=== PATIENT | male | born 1960 | race Caucasian/White ===

== ENCOUNTER 2020-05-07 09:16 | Inpatient (IN) | payer MEDICARE ==
[2020-05-07 09:27] LABS: ANION GAP 18.6 mEq/L (7-13); CHLORIDE,CL 101 mmol/L (98-107); SODIUM,NA 139 mmol/L (136-145)
[2020-05-07] MEDS ORDERED: 50% Dextrose in Water 50 ML Syringe IVPUSH ONE (10:05)
--- NOTE | 2020-05-07 10:07 | CR ---
PROCEDURE INFORMATION: Exam: XR Chest Exam date and time: 05/07/2020 9:44 AM Age: 59 years old Clinical indication: Chest pain TECHNIQUE: Imaging protocol: XR of the chest Views: 1 view. COMPARISON: No relevant prior studies available. FINDINGS: Limitations: Underpenetration. Lungs: Unremarkable. No consolidation. Pleural spaces: Unremarkable. No pleural effusion. No pneumothorax. Heart/Mediastinum: Unremarkable. No cardiomegaly. Bones/joints: Degenerative changes involve the spine. IMPRESSION: No evidence for acute pulmonary disease.
--- NOTE | 2020-05-07 10:19 | EDM.PDOC ---
ED HPI GENERAL MEDICAL PROBLEM - General Chief Complaint: General Time Seen by Provider: 05/07/20 09:16 Source of Information: Reports: Patient, EMS, EMS Notes Reviewed, RN, RN Notes Reviewed History Limitations: Reports: No Limitations - History of Present Illness INITIAL COMMENTS - FREE TEXT/NARRATIVE: Patient is a 59-year-old male who presents to ER per [facility] with complaint of increased weakness and inability to walk for the past 5 to 6 weeks, progressively getting worse. Patient denies any fever chills, nausea, vomiting. States he has had some diarrhea as well as incontinence of bowel and bladder. Patient states he is a diabetic, does not take medications for his diabetes. States a history of hypertension. Patient also states a history of chronic back pain, with shooting pains down his legs. He states this has not changed recently, denies any saddle anesthesia. Patient states he does take gabapentin for this. Onset: Gradual Leg Pain Score (Numeric/FACES): 4 - Related Data Allergies Allergy/AdvReac Type Severity Reaction Status Date / Time No Known Allergies Allergy Verified 05/07/20 11:26 Home Meds: Home Meds Gabapentin 600 mg PO TID 03/10/14 [History] HCTZ/Triamterene [Maxzide 25-37.5 MG] 1 tab PO DAILY 03/10/14 [History] Lisinopril 40 mg PO DAILY 03/10/14 [History] tiZANidine HCl [Tizanidine HCl] 8 mg PO Q8H PRN 03/10/14 [History] atorvaSTATin [Lipitor] 20 mg PO DAILY 05/07/20 [History] glyBURIDE [Micronase] 2.5 mg PO DAILY 05/07/20 [History] metFORMIN HCl [Metformin HCl] 1,000 mg PO BIDMEALS 05/07/20 [History] Past Medical History HEENT History: Reports: Impaired Vision Other HEENT History: wears glasses Cardiovascular History: Reports: Hypertension Respiratory History: Reports: Sleep Apnea Gastrointestinal History: Reports: None Genitourinary History: Reports: None Musculoskeletal History: Reports: Back Pain, Chronic Neurological History: Reports: Concussion, Head Trauma Psychiatric History: Reports: Addiction Endocrine/Metabolic History: Reports: Diabetes, Type II, Obesity/BMI 30+ Hematologic History: Reports: None Immunologic History: Reports: None Oncologic (Cancer) History: Reports: None Dermatologic History: Reports: None - Infectious Disease History Infectious Disease History: Reports: Chicken Pox, Measles, Mumps - Past Surgical History Head Surgeries/Procedures: Reports: None HEENT Surgical History: Reports: Tonsillectomy Other GI Surgeries/Procedures: ruptured belly button as a child Social & Family History - Tobacco Use Tobacco Use Status *Q: Current Every Day Tobacco User Years of Tobacco use: 46 Packs/Tins Daily: 1 Second Hand Smoke Exposure: Yes - Caffeine Use Caffeine Use: Reports: Coffee - Recreational Drug Use Recreational Drug Use: No ED ROS GENERAL - Review of Systems Review Of Systems: Comprehensive ROS is negative, except as noted in HPI. ED EXAM, GENERAL - Physical Exam Exam: See Below Exam Limited By: No Limitations General Appearance: Alert, WD/WN (Right shoulder right), No Apparent Distress, Obese Eye Exam: Bilateral Eye: EOMI, Normal Inspection Ears: Normal External Exam, Hearing Grossly Normal Nose: Normal Inspection Throat/Mouth: Normal Inspection, Normal Voice, No Airway Compromise Head: Atraumatic, Normocephalic Neck: Normal Inspection, Supple, Non-Tender, Full Range of Motion Respiratory/Chest: No Respiratory Distress, Lungs Clear, Normal Breath Sounds, No Accessory Muscle Use, Chest Non-Tender, Decreased Breath Sounds Cardiovascular: Normal Peripheral Pulses, Regular Rate, Rhythm, No Edema, No Gallop, No JVD, No Murmur, No Rub Peripheral Pulses: 2+: Radial (L), Radial (R) GI/Abdominal: Normal Bowel Sounds, Soft, Non-Tender (Male) Exam: Deferred Rectal (Males) Exam: Deferred Back Exam: Normal Inspection, Full Range of Motion, NT Extremities: Normal Inspection, Normal Range of Motion, Non-Tender, Normal Capillary Refill, No Pedal Edema Neurological: Alert, Oriented, CN II-XII Intact, Normal Cognition, No Motor/Sensory Deficits Psychiatric: Normal Affect, Normal Mood Skin Exam: Warm, Dry, Intact, Normal Color, No Rash Lymphatic: No Adenopathy Course - Vital Signs Last Recorded V/S: Last Vital Signs Temp 97.3 F 05/07/20 08:42 Pulse 94 05/07/20 08:42 Resp 17 05/07/20 08:42 BP 131/90 05/07/20 08:42 Pulse Ox 96 05/07/20 08:42 - Orders/Labs/Meds Orders: Active Orders 24 hr Category Date Time Status Urinary Catheter Insertion [Insert Urinary Catheter] [ Care 05/07/20 11:00 Ordered OM.PC] Q24H Labs: Laboratory Tests 05/07/20 05/07/20 05/07/20 Range/Units 09:00 09:00 10:43 WBC 6.2 (5.0-10.0) 10^3/uL RBC 4.36 L (4.6-6.2) 10^6/uL Hgb 14.9 D (14.0-18.0) g/dL Hct 43.4 (40.0-54.0) % MCV 99.5 (80-100) fL MCH 34.2 H (27.0-34.0) pg MCHC 34.3 (33.0-35.0) g/dL Plt Count 66 L (150-450) 10^3/uL Neut % (Auto) 70.0 (42.2-75.2) % Lymph % (Auto) 15.9 L (20.5-50.1) % [place] % (Auto) 13.6 H (2-8) % Eos % (Auto) 0.2 L (1.0-3.0) % Baso % (Auto) 0.3 (0.0-1.0) % Add Manual Diff Yes Neutrophils % (Manual) 69 (42-75) % Band Neutrophils % 8 % Lymphocytes % (Manual) 14 L (20-50) % Monocytes % (Manual) 9 H (2-8) % Sodium 139 (136-145) mmol/L Potassium 4.6 (3.5-5.1) mmol/L Chloride 101 (98-107) mmol/L Carbon Dioxide 24 (21-32) mmol/L Anion Gap 18.6 H (7-13) mEq/L BUN 81 H D (7-18) mg/dL Creatinine 2.90 H D (0.70-1.30) mg/dL Est Cr Clr Drug Dosing 25.36 mL/min Estimated GFR (MDRD) 23 BUN/Creatinine Ratio 27.9 (No establ ref range) Glucose 53 L (74-99) mg/dL Calcium 8.5 (8.5-10.1) mg/dL Magnesium 2.1 (1.8-2.4) mg/dL Total Bilirubin 0.8 (0.2-1.0) mg/dL AST 96 H (15-37) U/L ALT 59 (16-63) U/L Alkaline Phosphatase 50 (46-116) U/L Troponin I < 0.017 (0.000-0.056) ng/mL C-Reactive Protein 9.4 H (0.0-0.9) mg/dL Total Protein 7.7 (6.4-8.2) g/dL Albumin 3.1 L (3.4-5.0) g/dL Globulin 4.6 Albumin/Globulin Ratio 0.67 Urine Color (YELLOW) Urine Appearance (CLEAR) Urine pH (5.0-9.0) Ur Specific [place] (1.005-1.030) Urine Protein (NEGATIVE) Urine Glucose (UA) (NEGATIVE) Urine Ketones (NEGATIVE) Urine Occult Blood (NEGATIVE) Urine Nitrite (NEGATIVE) Urine Bilirubin (NEGATIVE) Urine Urobilinogen (0.2-1.0) mg/dL Ur Leukocyte Esterase (NEGATIVE) U Hyaline Cast (Auto) Urine RBC /HPF Urine WBC (0-5/HPF) /HPF Ur Epithelial Cells (NOT SEEN) /HPF Amorphous Sediment (NOT SEEN) /HPF Urine Bacteria (0-FEW/HPF) /HPF Urine Mucus (NOT SEEN) /LPF Urine Other Urine Opiates Screen (NEGATIVE) Ur Oxycodone Screen (NEGATIVE) Urine Methadone Screen (NEGATIVE) Ur Barbiturates Screen (NEGATIVE) U Tricyclic Antidepress (NEGATIVE) Ur Phencyclidine Scrn (NEGATIVE) Ur Amphetamine Screen (NEGATIVE) U Methamphetamines Scrn (NEGATIVE) Urine MDMA Screen (NEGATIVE) U Benzodiazepines Scrn (NEGATIVE) Urine Cocaine Screen (NEGATIVE) U Marijuana (THC) Screen (NEGATIVE) Ketones Negative Influenza Type A RNA Negative (NEGATIVE) Influenza Type B RNA Negative (NEGATIVE) SARS-CoV-2 RNA (DANETTE) Positive H (NEGATIVE) 05/07/20 05/07/20 Range/Units 10:52 10:52 WBC (5.0-10.0) 10^3/uL RBC (4.6-6.2) 10^6/uL Hgb (14.0-18.0) g/dL Hct (40.0-54.0) % MCV (80-100) fL MCH (27.0-34.0) pg MCHC (33.0-35.0) g/dL Plt Count (150-450) 10^3/uL Neut % (Auto) (42.2-75.2) % Lymph % (Auto) (20.5-50.1) % [place] % (Auto) (2-8) % Eos % (Auto) (1.0-3.0) % Baso % (Auto) (0.0-1.0) % Add Manual Diff Neutrophils % (Manual) (42-75) % Band Neutrophils % % Lymphocytes % (Manual) (20-50) % Monocytes % (Manual) (2-8) % Sodium (136-145) mmol/L Potassium (3.5-5.1) mmol/L Chloride (98-107) mmol/L Carbon Dioxide (21-32) mmol/L Anion Gap (7-13) mEq/L BUN (7-18) mg/dL Creatinine (0.70-1.30) mg/dL Est Cr Clr Drug Dosing mL/min Estimated GFR (MDRD) BUN/Creatinine Ratio (No establ ref range) Glucose (74-99) mg/dL Calcium (8.5-10.1) mg/dL Magnesium (1.8-2.4) mg/dL Total Bilirubin (0.2-1.0) mg/dL AST (15-37) U/L ALT (16-63) U/L Alkaline Phosphatase (46-116) U/L Troponin I (0.000-0.056) ng/mL C-Reactive Protein (0.0-0.9) mg/dL Total Protein (6.4-8.2) g/dL Albumin (3.4-5.0) g/dL Globulin Albumin/Globulin Ratio Urine Color Yellow (YELLOW) Urine Appearance Clear (CLEAR) Urine pH 5.5 (5.0-9.0) Ur Specific [place] 1.025 (1.005-1.030) Urine Protein 100 H (NEGATIVE) Urine Glucose (UA) Negative (NEGATIVE) Urine Ketones Negative (NEGATIVE) Urine Occult Blood Moderate H (NEGATIVE) Urine Nitrite Negative (NEGATIVE) Urine Bilirubin Negative (NEGATIVE) Urine Urobilinogen 0.2 (0.2-1.0) mg/dL Ur Leukocyte Esterase Negative (NEGATIVE) U Hyaline Cast (Auto) Few Urine RBC 0-5 /HPF Urine WBC 0-5 (0-5/HPF) /HPF Ur Epithelial Cells Few (NOT SEEN) /HPF Amorphous Sediment Few (NOT SEEN) /HPF Urine Bacteria Not seen (0-FEW/HPF) /HPF Urine Mucus Few H (NOT SEEN) /LPF Urine Other See note Urine Opiates Screen Negative (NEGATIVE) Ur Oxycodone Screen Negative (NEGATIVE) Urine Methadone Screen Negative (NEGATIVE) Ur Barbiturates Screen Negative (NEGATIVE) U Tricyclic Antidepress Negative (NEGATIVE) Ur Phencyclidine Scrn Negative (NEGATIVE) Ur Amphetamine Screen Negative (NEGATIVE) U Methamphetamines Scrn Negative (NEGATIVE) Urine MDMA Screen Negative (NEGATIVE) U Benzodiazepines Scrn Negative (NEGATIVE) Urine Cocaine Screen Negative (NEGATIVE) U Marijuana (THC) Screen Negative (NEGATIVE) Ketones Influenza Type A RNA (NEGATIVE) Influenza Type B RNA (NEGATIVE) SARS-CoV-2 RNA (DANETTE) (NEGATIVE) Meds: Medications Discontinued Medications Generic Name Dose Route Start Last Admin Trade Name Freq PRN Reason Stop Dose Admin Dextrose/Water 50 ml 05/07/20 10:05 05/07/20 10:28 50% Dextrose In Water 50 Ml Syringe IVPUSH 05/07/20 10:06 50 ml ONETIME ONE Administration - Radiology Interpretation Free Text/Narrative:: Chest xray: PROCEDURE INFORMATION: Exam: XR Chest Exam date and time: 05/07/2020 9:44 AM Age: 59 years old Clinical indication: Chest pain TECHNIQUE: Imaging protocol: XR of the chest Views: 1 view. COMPARISON: No relevant prior studies available. FINDINGS: Limitations: Underpenetration. Lungs: Unremarkable. No consolidation. Pleural spaces: Unremarkable. No pleural effusion. No pneumothorax. Heart/Mediastinum: Unremarkable. No cardiomegaly. Bones/joints: Degenerative changes involve the spine. IMPRESSION: No evidence for acute pulmonary disease. Thank you for allowing us to participate in the care of your patient. Dictated and Authenticated by: Aiden Romo MD 05/07/2020 10:07 AM Central Time ([place] & [place]) See rad report - Re-Assessments/Exams Free Text/Narrative Re-Assessment/Exam: 05/07/20 13:27 Discussed patient case with Dr. Wan who agreed to accept the patient for acute admission. Departure - Departure Time of Disposition: 11:08 Disposition: Admitted As Inpatient 68 Condition: Fair Clinical Impression: COVID-19 Acute kidney failure Qualifiers: Acute renal failure type: unspecified Qualified Code(s): N17.9 - Acute kidney failure, unspecified - Discharge Information *PRESCRIPTION DRUG MONITORING PROGRAM REVIEWED*: No Sepsis Event Note (ED) - Evaluation Sepsis Screening Result: No Definite Risk - Focused Exam Vital Signs: Vital Signs Temp Pulse Resp BP Pulse Ox 05/07/20 08:42 97.3 F 94 17 131/90 96 - My Orders Last 24 Hours: My Active Orders 05/07/20 11:00 Urinary Catheter Insertion [Insert Urinary Catheter] [OM.PC] Q24H - Assessment/Plan Last 24 Hours: My Active Orders 05/07/20 11:00 Urinary Catheter Insertion [Insert Urinary Catheter] [OM.PC] Q24H
[2020-05-07 11:34] LABS: CORONAVIRUS COVID-19 NAA POSITIVE (NEGATIVE)
[2020-05-07] MEDS ORDERED: Sodium Chloride 0.9% 1,000 ML IV ONE (14:20)
[2020-05-07] MEDS ORDERED: Acetaminophen 325 MG Tab PO PRN (15:08)
[2020-05-07] MEDS ORDERED: Insulin Lispro 100 Units/ML 3 ML Vial SUBCUT SCH (15:15)
[2020-05-07] MEDS ORDERED: Glucagon,Human Recombinant 1 MG Vial IM PRN (15:26)
[2020-05-07] MEDS ORDERED: Enoxaparin 40 MG/0.4 ML Syringe SUBCUT SCH (15:30)
--- NOTE | 2020-05-07 15:41 | PCM.HP ---
H&P History of Present Illness - General Date of Service: 05/07/20 Admit Problem/Dx: Admission Diagnosis/Problem Admission Diagnosis/Problem Weakness Patient is a 59-year-old male who presents to ER per [facility] with complaint of increased weakness and inability to walk for the past 2 weeks, progressively getting worse. Patient denies any fever chills, nausea, vomiting. States he has had some diarrhea as well as incontinence of bowel and bladder. Patient states he is a diabetic, does not take medications for his diabetes. States a history of hypertension. Patient also states a history of chronic back pain, with shooting pains down his legs. He states this has not changed recently, denies any saddle anesthesia. Patient states he does take gabapentin for this. He repots that he has been in self isolation for the past 10 days due to COVID exposure. He also complains of urinary incontinence and occasional stool incontinence. Source of Information: Patient, RN Notes Reviewed History Limitations: Reports: No Limitations - History of Present Illness Onset of Symptoms: Reports: Gradual Duration of Symptoms: Reports: Getting Worse Location: Reports: Generalized Quality: Reports: Ache Improves with: Reports: None Worsens with: Reports: None Associated Symptoms: Reports: No Other Symptoms Leg Pain Score (Numeric/FACES): 4 - Related Data Allergies/Adverse Reactions: Allergies Allergy/AdvReac Type Severity Reaction Status Date / Time No Known Allergies Allergy Verified 05/07/20 11:26 Home Medications: Home Meds Gabapentin 600 mg PO TID 03/10/14 [History] HCTZ/Triamterene [Maxzide 25-37.5 MG] 1 tab PO DAILY 03/10/14 [History] Lisinopril 40 mg PO DAILY 03/10/14 [History] tiZANidine HCl [Tizanidine HCl] 8 mg PO Q8H PRN 03/10/14 [History] atorvaSTATin [Lipitor] 20 mg PO DAILY 05/07/20 [History] glyBURIDE [Micronase] 2.5 mg PO DAILY 05/07/20 [History] metFORMIN HCl [Metformin HCl] 1,000 mg PO BIDMEALS 05/07/20 [History] Past Medical History HEENT History: Reports: Impaired Vision Other HEENT History: wears glasses Cardiovascular History: Reports: Hypertension Respiratory History: Reports: Sleep Apnea Gastrointestinal History: Reports: None Genitourinary History: Reports: Urinary Incontinence Musculoskeletal History: Reports: Back Pain, Chronic Neurological History: Reports: Concussion, Head Trauma Psychiatric History: Reports: Addiction Endocrine/Metabolic History: Reports: Diabetes, Type II, Obesity/BMI 30+ Hematologic History: Reports: None Immunologic History: Reports: None Oncologic (Cancer) History: Reports: None Dermatologic History: Reports: Other (See Below) Other Dermatologic History: dry skin, yeast areas in skin folds - Infectious Disease History Infectious Disease History: Reports: Chicken Pox, Measles, Mumps - Past Surgical History Head Surgeries/Procedures: Reports: None (AAA repair, B lower iliac stents ?) HEENT Surgical History: Reports: Tonsillectomy Cardiovascular Surgical History: Reports: None Other GI Surgeries/Procedures: ruptured belly button as a child Male Surgical History: Reports: None Endocrine Surgical History: Reports: None Neurological Surgical History: Reports: None Musculoskeletal Surgical History: Reports: None Dermatological Surgical History: Reports: Other (See Below) Social & Family History - Tobacco Use Tobacco Use Status *Q: Current Every Day Tobacco User Years of Tobacco use: 46 Packs/Tins Daily: 1 Second Hand Smoke Exposure: Yes - Caffeine Use Caffeine Use: Reports: Coffee - Recreational Drug Use Recreational Drug Use: No H&P Review of Systems - Review of Systems: Review Of Systems: See Below General: Reports: Malaise, Weakness, Fatigue. Denies: Fever, Chills HEENT: Denies: Rhinitis Pulmonary: Denies: Shortness of Breath Cardiovascular: Denies: Chest Pain Gastrointestinal: Reports: Stool Incontinence. Denies: Abdominal Pain Genitourinary: Reports: Incontinence. Denies: Dysuria Skin: Denies: Cyanosis Psychiatric: Denies: Confusion Neurological: Denies: Confusion Hematologic/Lymphatic: Denies: Anemia Immunologic: Denies: No Symptoms, Anaphylaxis Exam - Exam Exam: Not Obtained Reason Not Obtained: due to COVID status - Vital Signs Vital Signs: Last Vital Signs Temp 98.2 F 05/07/20 13:17 Pulse 107 H 05/07/20 13:17 Resp 16 05/07/20 13:17 BP 75/48 L 05/07/20 13:17 Pulse Ox 92 L 05/07/20 13:17 Weight: 353 lb 3.2 oz - Exam Quality Assessment: No: Supplemental Oxygen General: Alert, Oriented HEENT: Hearing Intact (Male) Exam: Other (Gallardo placed in ER) Extremities: Normal Inspection Skin: Warm Neurological: Normal Speech Neuro Extensive - Mental Status: Alert, Oriented x3 Psychiatric: Alert, Normal Affect - Patient Data Lab Results Last 24 hrs: Laboratory Results - last 24 hr 05/07/20 05/07/20 05/07/20 Range/Units 09:00 09:00 10:43 WBC 6.2 (5.0-10.0) 10^3/uL RBC 4.36 L (4.6-6.2) 10^6/uL Hgb 14.9 D (14.0-18.0) g/dL Hct 43.4 (40.0-54.0) % MCV 99.5 (80-100) fL MCH 34.2 H (27.0-34.0) pg MCHC 34.3 (33.0-35.0) g/dL Plt Count 66 L (150-450) 10^3/uL Neut % (Auto) 70.0 (42.2-75.2) % Lymph % (Auto) 15.9 L (20.5-50.1) % [place] % (Auto) 13.6 H (2-8) % Eos % (Auto) 0.2 L (1.0-3.0) % Baso % (Auto) 0.3 (0.0-1.0) % Add Manual Diff Yes Neutrophils % (Manual) 69 (42-75) % Band Neutrophils % 8 % Lymphocytes % (Manual) 14 L (20-50) % Monocytes % (Manual) 9 H (2-8) % Sodium 139 (136-145) mmol/L Potassium 4.6 (3.5-5.1) mmol/L Chloride 101 (98-107) mmol/L Carbon Dioxide 24 (21-32) mmol/L Anion Gap 18.6 H (7-13) mEq/L BUN 81 H D (7-18) mg/dL Creatinine 2.90 H D (0.70-1.30) mg/dL Est Cr Clr Drug Dosing 25.36 mL/min Estimated GFR (MDRD) 23 BUN/Creatinine Ratio 27.9 (No establ ref range) Glucose 53 L (74-99) mg/dL Calcium 8.5 (8.5-10.1) mg/dL Magnesium 2.1 (1.8-2.4) mg/dL Total Bilirubin 0.8 (0.2-1.0) mg/dL AST 96 H (15-37) U/L ALT 59 (16-63) U/L Alkaline Phosphatase 50 (46-116) U/L Troponin I < 0.017 (0.000-0.056) ng/mL C-Reactive Protein 9.4 H (0.0-0.9) mg/dL Total Protein 7.7 (6.4-8.2) g/dL Albumin 3.1 L (3.4-5.0) g/dL Globulin 4.6 Albumin/Globulin Ratio 0.67 Urine Color (YELLOW) Urine Appearance (CLEAR) Urine pH (5.0-9.0) Ur Specific [place] (1.005-1.030) Urine Protein (NEGATIVE) Urine Glucose (UA) (NEGATIVE) Urine Ketones (NEGATIVE) Urine Occult Blood (NEGATIVE) Urine Nitrite (NEGATIVE) Urine Bilirubin (NEGATIVE) Urine Urobilinogen (0.2-1.0) mg/dL Ur Leukocyte Esterase (NEGATIVE) U Hyaline Cast (Auto) Urine RBC /HPF Urine WBC (0-5/HPF) /HPF Ur Epithelial Cells (NOT SEEN) /HPF Amorphous Sediment (NOT SEEN) /HPF Urine Bacteria (0-FEW/HPF) /HPF Urine Mucus (NOT SEEN) /LPF Urine Other Urine Opiates Screen (NEGATIVE) Ur Oxycodone Screen (NEGATIVE) Urine Methadone Screen (NEGATIVE) Ur Barbiturates Screen (NEGATIVE) U Tricyclic Antidepress (NEGATIVE) Ur Phencyclidine Scrn (NEGATIVE) Ur Amphetamine Screen (NEGATIVE) U Methamphetamines Scrn (NEGATIVE) Urine MDMA Screen (NEGATIVE) U Benzodiazepines Scrn (NEGATIVE) Urine Cocaine Screen (NEGATIVE) U Marijuana (THC) Screen (NEGATIVE) Ketones Negative Influenza Type A RNA Negative (NEGATIVE) Influenza Type B RNA Negative (NEGATIVE) SARS-CoV-2 RNA (DANETTE) Positive H (NEGATIVE) 05/07/20 05/07/20 Range/Units 10:52 10:52 WBC (5.0-10.0) 10^3/uL RBC (4.6-6.2) 10^6/uL Hgb (14.0-18.0) g/dL Hct (40.0-54.0) % MCV (80-100) fL MCH (27.0-34.0) pg MCHC (33.0-35.0) g/dL Plt Count (150-450) 10^3/uL Neut % (Auto) (42.2-75.2) % Lymph % (Auto) (20.5-50.1) % [place] % (Auto) (2-8) % Eos % (Auto) (1.0-3.0) % Baso % (Auto) (0.0-1.0) % Add Manual Diff Neutrophils % (Manual) (42-75) % Band Neutrophils % % Lymphocytes % (Manual) (20-50) % Monocytes % (Manual) (2-8) % Sodium (136-145) mmol/L Potassium (3.5-5.1) mmol/L Chloride (98-107) mmol/L Carbon Dioxide (21-32) mmol/L Anion Gap (7-13) mEq/L BUN (7-18) mg/dL Creatinine (0.70-1.30) mg/dL Est Cr Clr Drug Dosing mL/min Estimated GFR (MDRD) BUN/Creatinine Ratio (No establ ref range) Glucose (74-99) mg/dL Calcium (8.5-10.1) mg/dL Magnesium (1.8-2.4) mg/dL Total Bilirubin (0.2-1.0) mg/dL AST (15-37) U/L ALT (16-63) U/L Alkaline Phosphatase (46-116) U/L Troponin I (0.000-0.056) ng/mL C-Reactive Protein (0.0-0.9) mg/dL Total Protein (6.4-8.2) g/dL Albumin (3.4-5.0) g/dL Globulin Albumin/Globulin Ratio Urine Color Yellow (YELLOW) Urine Appearance Clear (CLEAR) Urine pH 5.5 (5.0-9.0) Ur Specific [place] 1.025 (1.005-1.030) Urine Protein 100 H (NEGATIVE) Urine Glucose (UA) Negative (NEGATIVE) Urine Ketones Negative (NEGATIVE) Urine Occult Blood Moderate H (NEGATIVE) Urine Nitrite Negative (NEGATIVE) Urine Bilirubin Negative (NEGATIVE) Urine Urobilinogen 0.2 (0.2-1.0) mg/dL Ur Leukocyte Esterase Negative (NEGATIVE) U Hyaline Cast (Auto) Few Urine RBC 0-5 /HPF Urine WBC 0-5 (0-5/HPF) /HPF Ur Epithelial Cells Few (NOT SEEN) /HPF Amorphous Sediment Few (NOT SEEN) /HPF Urine Bacteria Not seen (0-FEW/HPF) /HPF Urine Mucus Few H (NOT SEEN) /LPF Urine Other See note Urine Opiates Screen Negative (NEGATIVE) Ur Oxycodone Screen Negative (NEGATIVE) Urine Methadone Screen Negative (NEGATIVE) Ur Barbiturates Screen Negative (NEGATIVE) U Tricyclic Antidepress Negative (NEGATIVE) Ur Phencyclidine Scrn Negative (NEGATIVE) Ur Amphetamine Screen Negative (NEGATIVE) U Methamphetamines Scrn Negative (NEGATIVE) Urine MDMA Screen Negative (NEGATIVE) U Benzodiazepines Scrn Negative (NEGATIVE) Urine Cocaine Screen Negative (NEGATIVE) U Marijuana (THC) Screen Negative (NEGATIVE) Ketones Influenza Type A RNA (NEGATIVE) Influenza Type B RNA (NEGATIVE) SARS-CoV-2 RNA (DANETTE) (NEGATIVE) Result Diagrams: 05/07/20 09:00 05/07/20 09:00 Problem List Initiated/Reviewed/Updated: Yes Orders Last 24hrs: Active Orders 24 hr Category Date Time Status Admission Diagnosis [ADT] Routine ADT 05/07/20 11:46 Ordered Admission Status [Patient Status] [ADT] Routine ADT 05/07/20 11:45 Active Blood Glucose Check, Bedside [RC] WITHMEALSANDBED Care 05/07/20 15:08 Active Diabetes Education [RC] Click to Edit Care 05/07/20 15:14 Active Oxygen Therapy [RC] PRN Care 05/07/20 15:11 Active Up ad Marnie [RC] ASDIRECTED Care 05/07/20 15:08 Active Urinary Catheter Insertion [Insert Urinary Catheter] [ Care 05/07/20 11:00 Ordered OM.PC] Q24H VTE/DVT Education [RC] PER UNIT ROUTINE Care 05/07/20 15:11 Active Vital Signs [RC] Q4H Care 05/07/20 15:11 Active Consistent Carbohydrate Diet [DIET] Diet 05/07/20 Dinner Active BASIC METABOLIC PANEL,BMP [CHEM] AM Lab 05/08/20 05:11 Ordered BASIC METABOLIC PANEL,BMP [CHEM] AM Lab 05/09/20 05:11 Ordered BASIC METABOLIC PANEL,BMP [CHEM] AM Lab 05/10/20 05:11 Ordered BASIC METABOLIC PANEL,BMP [CHEM] AM Lab 05/11/20 05:11 Ordered BASIC METABOLIC PANEL,BMP [CHEM] AM Lab 05/12/20 05:11 Ordered BASIC METABOLIC PANEL,BMP [CHEM] AM Lab 05/13/20 05:11 Ordered BASIC METABOLIC PANEL,BMP [CHEM] AM Lab 05/14/20 05:11 Ordered CBC WITH AUTO DIFF [HEME] AM Lab 05/08/20 05:11 Ordered CBC WITH AUTO DIFF [HEME] AM Lab 05/09/20 05:11 Ordered CBC WITH AUTO DIFF [HEME] AM Lab 05/10/20 05:11 Ordered CBC WITH AUTO DIFF [HEME] AM Lab 05/11/20 05:11 Ordered CBC WITH AUTO DIFF [HEME] AM Lab 05/12/20 05:11 Ordered CBC WITH AUTO DIFF [HEME] AM Lab 05/13/20 05:11 Ordered CBC WITH AUTO DIFF [HEME] AM Lab 05/14/20 05:11 Ordered CREATINE KINASE,CK [CHEM] AM Lab 05/08/20 05:11 Ordered Acetaminophen [TylenoL] Med 05/07/20 15:08 Ordered 650 mg PO Q4H PRN Enoxaparin [Lovenox] Med 05/07/20 15:30 Ordered 40 mg SUBCUT DAILY Glucagon,Human Recombinant [GlucaGen] Med 05/07/20 15:26 Ordered 1 mg IM Q15M PRN Insulin Lispro [HumaLOG] Med 05/07/20 18:00 Ordered See Protocol SUBCUT WITHMEALSANDBED tiZANidine HCl [Tizanidine HCl] Med 05/07/20 15:19 Ordered 8 mg PO Q8H PRN Glucose Management Sub Q Reflex [OM.PC] Click to Edit Oth 05/07/20 15:08 Ordered Resuscitation Status Routine Resus Stat 05/07/20 15:08 Ordered Medication Orders Acetaminophen (Acetaminophen 325 Mg Tab) 650 mg PO Q4H PRN PRN Reason: Pain (Mild 1-3)/fever Enoxaparin Sodium (Enoxaparin 40 Mg/0.4 Ml Syringe) 40 mg SUBCUT DAILY LONNY Glucagon (Glucagon,Human Recombinant 1 Mg Vial) 1 mg IM Q15M PRN PRN Reason: Hypoglycemia Insulin Human Lispro (Insulin Lispro 100 Units/Ml 3 Ml Vial) 0 unit SUBCUT WITHMEALSANDBED LONNY; Protocol Non-Formulary Medication (Tizanidine Hcl [Tizanidine Hcl]) 8 mg PO Q8H PRN PRN Reason: Muscle Spasm Assessment/Plan Comment:: Generalized weakness: possible due to SILVESTRE and or COVID Urinary inconstance/ Urinary retention: Gallardo placed in ER SILVESTRE: likely due to urinary retention. Gallardo placed in ER COVID: h/o exposure about 10 days ago . Pt reports that he was in home isolation for about 10 days already. Reported stool incontinence: observe for improvement of symptoms since urianry retention is been addressed DM type 2: hold oral medication due to SILVESTRE. HTN: Hold ACEI due to SILVESTRE H/o on ongoing smoking: advised to quit. he does not want nicotine patch. h/o chronic back pain h/o PVD: advised to quit smoking Full code
[2020-05-07] MEDS: Enoxaparin 30 MG/0.3 ML Syringe SUBCUT SCH (15:49)
[2020-05-07] MEDS: Sodium Chloride 0.9% 1,000 ML IV SCH (16:57)
[2020-05-07] MEDS: Insulin Lispro 100 Units/ML 3 ML Vial SUBCUT SCH ×2 (17:00→21:01)
[2020-05-07] MEDS: TIZANIDINE HCL 4 MG PO PRN (17:02)
[2020-05-07] MEDS ORDERED: Sodium Chloride 0.9% 1,000 ML IV SCH (19:30)
[2020-05-07] MEDS: Nystatin Topical Powder 30 GM Bottle TOP PRN (21:00)
[2020-05-08] MEDS: Sodium Chloride 0.9% 1,000 ML IV SCH ×3 (01:53→18:31)
[2020-05-08] MEDS: TIZANIDINE HCL 4 MG PO PRN ×2 (03:17→12:05)
[2020-05-08 07:04] LABS: ANION GAP 14.2 mEq/L (7-13)
[2020-05-08] MEDS: Insulin Lispro 100 Units/ML 3 ML Vial SUBCUT SCH ×4 (08:37→20:25)
[2020-05-08] MEDS: Nystatin Topical Powder 30 GM Bottle TOP PRN (09:59)
[2020-05-08] MEDS: Enoxaparin 30 MG/0.3 ML Syringe SUBCUT SCH (10:00)
--- NOTE | 2020-05-08 12:19 | PCM.PN ---
- General Info Date of Service: 05/08/20 Admission Dx/Problem (Free Text): Patient is a 59-year-old male who presents to ER per [facility] with complaint of increased weakness and inability to walk for the past 2 weeks, progressively getting worse. Patient denies any fever chills, nausea, vomiting. States he has had some diarrhea as well as incontinence of bowel and bladder. Patient states he is a diabetic, does not take medications for his diabetes. States a history of hypertension. Patient also states a history of chronic back pain, with shooting pains down his legs. He states this has not changed recently, denies any saddle anesthesia. Patient states he does take gabapentin for this. He reports that he has been in self isolation for the past 10 days due to COVID exposure. He also complains of urinary incontinence and occasional stool incontinence. Hypotension: most likely due to hypovolemia> improved. contine with IVF for today Generalized weakness: possible due to SILVESTRE and / or COVID. to start ambulating. Urinary inconstance/ Urinary retention: Bartlett placed in ER. keep for now SILVESTRE: likely due to urinary retention. Bartlett placed in ER COVID: h/o exposure about 10 days ago . Pt reports that he was in home isolation for about 10 days already. Reported stool incontinence: observe for improvement of symptoms since urinary retention is been addressed DM type 2: hold oral medication due to SILVESTRE. HTN: Hold ACEI due to SILVESTRE H/o on ongoing smoking: advised to quit. he does not want nicotine patch. h/o chronic back pain h/o PVD: advised to quit smoking Full code Functional Status: Denies: Pain Controlled - Review of Systems General: Denies: Fever Pulmonary: Denies: Shortness of Breath Cardiovascular: Denies: Chest Pain Gastrointestinal: Reports: Other (diarrhea : better). Denies: Abdominal Pain Genitourinary: Denies: Dysuria Musculoskeletal: Reports: Back Pain (chronic) Neurological: Denies: Confusion Psychiatric: Denies: Confusion - Patient Data Vitals - Most Recent: Last Vital Signs Temp 97.5 F 05/08/20 08:00 Pulse 73 05/08/20 08:00 Resp 20 05/08/20 08:00 BP 81/39 L 05/08/20 08:00 Pulse Ox 97 05/08/20 08:00 Weight - Most Recent: 353 lb 3.2 oz I&O - Last 24 Hours: Intake & Output 05/07/20 05/08/20 05/08/20 22:59 06:59 14:59 Intake Total 3091 1171 120 Output Total 375 750 Balance 2716 421 120 Lab Results Last 24 Hours: Laboratory Results - last 24 hr 05/07/20 05/07/20 05/07/20 Range/Units 16:52 20:52 21:44 WBC (5.0-10.0) 10^3/uL RBC (4.6-6.2) 10^6/uL Hgb (14.0-18.0) g/dL Hct (40.0-54.0) % MCV (80-100) fL MCH (27.0-34.0) pg MCHC (33.0-35.0) g/dL Plt Count (150-450) 10^3/uL Neut % (Auto) (42.2-75.2) % Lymph % (Auto) (20.5-50.1) % Ross % (Auto) (2-8) % Eos % (Auto) (1.0-3.0) % Baso % (Auto) (0.0-1.0) % Sodium (136-145) mmol/L Potassium (3.5-5.1) mmol/L Chloride (98-107) mmol/L Carbon Dioxide (21-32) mmol/L Anion Gap (7-13) mEq/L BUN (7-18) mg/dL Creatinine (0.70-1.30) mg/dL Est Cr Clr Drug Dosing mL/min Estimated GFR (MDRD) Glucose (74-99) mg/dL POC Glucose 81 54 L 81 (70-105) mg/dl Calcium (8.5-10.1) mg/dL Creatine Kinase (39-308) U/L 05/08/20 05/08/20 05/08/20 Range/Units 06:29 06:29 08:06 WBC 4.7 L (5.0-10.0) 10^3/uL RBC 3.76 L (4.6-6.2) 10^6/uL Hgb 12.5 L D (14.0-18.0) g/dL Hct 38.6 L (40.0-54.0) % MCV 102.7 H D (80-100) fL MCH 33.2 (27.0-34.0) pg MCHC 32.4 L (33.0-35.0) g/dL Plt Count 60 L (150-450) 10^3/uL Neut % (Auto) 56.1 (42.2-75.2) % Lymph % (Auto) 27.2 (20.5-50.1) % Ross % (Auto) 14.6 H (2-8) % Eos % (Auto) 1.7 (1.0-3.0) % Baso % (Auto) 0.4 (0.0-1.0) % Sodium 140 (136-145) mmol/L Potassium 4.2 (3.5-5.1) mmol/L Chloride 105 (98-107) mmol/L Carbon Dioxide 25 (21-32) mmol/L Anion Gap 14.2 H (7-13) mEq/L BUN 87 H (7-18) mg/dL Creatinine 2.77 H (0.70-1.30) mg/dL Est Cr Clr Drug Dosing 26.55 mL/min Estimated GFR (MDRD) 24 Glucose 80 (74-99) mg/dL POC Glucose 86 (70-105) mg/dl Calcium 8.0 L (8.5-10.1) mg/dL Creatine Kinase 519 H (39-308) U/L /30/ Range/Units 12:01 WBC (5.0-10.0) 10^3/uL RBC (4.6-6.2) 10^6/uL Hgb (14.0-18.0) g/dL Hct (40.0-54.0) % MCV (80-100) fL MCH (27.0-34.0) pg MCHC (33.0-35.0) g/dL Plt Count (150-450) 10^3/uL Neut % (Auto) (42.2-75.2) % Lymph % (Auto) (20.5-50.1) % Ross % (Auto) (2-8) % Eos % (Auto) (1.0-3.0) % Baso % (Auto) (0.0-1.0) % Sodium (136-145) mmol/L Potassium (3.5-5.1) mmol/L Chloride (98-107) mmol/L Carbon Dioxide (21-32) mmol/L Anion Gap (7-13) mEq/L BUN (7-18) mg/dL Creatinine (0.70-1.30) mg/dL Est Cr Clr Drug Dosing mL/min Estimated GFR (MDRD) Glucose (74-99) mg/dL POC Glucose 143 H (70-105) mg/dl Calcium (8.5-10.1) mg/dL Creatine Kinase (39-308) U/L Med Orders - Current: Current Medications Acetaminophen (Acetaminophen 325 Mg Tab) 650 mg PO Q4H PRN PRN Reason: Pain (Mild 1-3)/fever Enoxaparin Sodium (Enoxaparin 30 Mg/0.3 Ml Syringe) 30 mg SUBCUT DAILY [facility] Last Admin: 05/08/20 10:00 Dose: 30 mg Documented by: Glucagon (Glucagon,Human Recombinant 1 Mg Vial) 1 mg IM Q15M PRN PRN Reason: Hypoglycemia Sodium Chloride (Normal Saline) 1,000 mls @ 125 mls/hr IV ASDIRECTED [facility] Last Admin: 05/08/20 09:56 Dose: 125 mls/hr Documented by: Sodium Chloride (Normal Saline) 1,000 mls @ 999 mls/hr IV ASDIRECTED [facility] Last Infusion: 05/08/20 01:52 Dose: Infused Documented by: Insulin Human Lispro (Insulin Lispro 100 Units/Ml 3 Ml Vial) 0 unit SUBCUT WITHMEALSANDBED [facility]; Protocol Last Admin: 05/08/20 08:37 Dose: Not Given Documented by: Tizanidine Hcl 4 Mg Tablet Pt Own Med* * 8 mg PO Q8H PRN PRN Reason: Muscle Spasm Last Admin: 05/08/20 12:05 Dose: 8 mg Documented by: Nystatin (Nystatin Topical Powder 30 Gm Bottle) 0 gm TOP BID PRN PRN Reason: Itching Last Admin: 05/08/20 09:59 Dose: 1 applic Documented by: Discontinued Medications Dextrose/Water (50% Dextrose In Water 50 Ml Syringe) 50 ml IVPUSH ONETIME ONE Stop: 05/07/20 10:06 Last Admin: 05/07/20 10:28 Dose: 50 ml Documented by: Sodium Chloride (Normal Saline) 1,000 mls @ 999 mls/hr IV .BOLUS ONE Stop: 05/07/20 15:20 Last Admin: 05/07/20 15:49 Dose: 999 mls/hr Documented by: Insulin Human Lispro (Insulin Lispro 100 Units/Ml 3 Ml Vial) 0 unit SUBCUT ASDIRECTED [facility]; Protocol - Exam Quality Assessment: Supplemental Oxygen General: Oriented (Male) Exam: Other (bartlett in place) Extremities: Normal Inspection Skin: Warm Physical Findings Comments:: rest of exam deferred due to COVID status - Patient Data Lab Results Last 24 hrs: Laboratory Results - last 24 hr 05/07/20 05/07/20 05/07/20 Range/Units 16:52 20:52 21:44 WBC (5.0-10.0) 10^3/uL RBC (4.6-6.2) 10^6/uL Hgb (14.0-18.0) g/dL Hct (40.0-54.0) % MCV (80-100) fL MCH (27.0-34.0) pg MCHC (33.0-35.0) g/dL Plt Count (150-450) 10^3/uL Neut % (Auto) (42.2-75.2) % Lymph % (Auto) (20.5-50.1) % Ross % (Auto) (2-8) % Eos % (Auto) (1.0-3.0) % Baso % (Auto) (0.0-1.0) % Sodium (136-145) mmol/L Potassium (3.5-5.1) mmol/L Chloride (98-107) mmol/L Carbon Dioxide (21-32) mmol/L Anion Gap (7-13) mEq/L BUN (7-18) mg/dL Creatinine (0.70-1.30) mg/dL Est Cr Clr Drug Dosing mL/min Estimated GFR (MDRD) Glucose (74-99) mg/dL POC Glucose 81 54 L 81 (70-105) mg/dl Calcium (8.5-10.1) mg/dL Creatine Kinase (39-308) U/L 05/08/20 05/08/20 05/08/20 Range/Units 06:29 06:29 08:06 WBC 4.7 L (5.0-10.0) 10^3/uL RBC 3.76 L (4.6-6.2) 10^6/uL Hgb 12.5 L D (14.0-18.0) g/dL Hct 38.6 L (40.0-54.0) % MCV 102.7 H D (80-100) fL MCH 33.2 (27.0-34.0) pg MCHC 32.4 L (33.0-35.0) g/dL Plt Count 60 L (150-450) 10^3/uL Neut % (Auto) 56.1 (42.2-75.2) % Lymph % (Auto) 27.2 (20.5-50.1) % Ross % (Auto) 14.6 H (2-8) % Eos % (Auto) 1.7 (1.0-3.0) % Baso % (Auto) 0.4 (0.0-1.0) % Sodium 140 (136-145) mmol/L Potassium 4.2 (3.5-5.1) mmol/L Chloride 105 (98-107) mmol/L Carbon Dioxide 25 (21-32) mmol/L Anion Gap 14.2 H (7-13) mEq/L BUN 87 H (7-18) mg/dL Creatinine 2.77 H (0.70-1.30) mg/dL Est Cr Clr Drug Dosing 26.55 mL/min Estimated GFR (MDRD) 24 Glucose 80 (74-99) mg/dL POC Glucose 86 (70-105) mg/dl Calcium 8.0 L (8.5-10.1) mg/dL Creatine Kinase 519 H (39-308) U/L 05/08/20 Range/Units 12:01 WBC (5.0-10.0) 10^3/uL RBC (4.6-6.2) 10^6/uL Hgb (14.0-18.0) g/dL Hct (40.0-54.0) % MCV (80-100) fL MCH (27.0-34.0) pg MCHC (33.0-35.0) g/dL Plt Count (150-450) 10^3/uL Neut % (Auto) (42.2-75.2) % Lymph % (Auto) (20.5-50.1) % Ross % (Auto) (2-8) % Eos % (Auto) (1.0-3.0) % Baso % (Auto) (0.0-1.0) % Sodium (136-145) mmol/L Potassium (3.5-5.1) mmol/L Chloride (98-107) mmol/L Carbon Dioxide (21-32) mmol/L Anion Gap (7-13) mEq/L BUN (7-18) mg/dL Creatinine (0.70-1.30) mg/dL Est Cr Clr Drug Dosing mL/min Estimated GFR (MDRD) Glucose (74-99) mg/dL POC Glucose 143 H (70-105) mg/dl Calcium (8.5-10.1) mg/dL Creatine Kinase (39-308) U/L Result Diagrams: 05/08/20 06:29 05/08/20 06:29 Sepsis Event Note - Evaluation Sepsis Screening Result: No Definite Risk - Focused Exam Vital Signs: Vital Signs Temp Pulse Resp BP BP Pulse Ox 05/08/20 08:00 97.5 F 73 20 134/84 81/39 L 97 05/08/20 03:24 98.3 F 85 20 121/67 94 L 05/08/20 01:54 79 20 103/53 L 94 L - Problem List & Annotations (1) Acute kidney failure SNOMED Code(s): 56108295 Code(s): N17.9 - ACUTE KIDNEY FAILURE, UNSPECIFIED Status: Acute Current Visit: Yes Qualifiers: Acute renal failure type: unspecified Qualified Code(s): N17.9 - Acute kidney failure, unspecified (2) COVID-19 SNOMED Code(s): 706079278 Code(s): U07.1 - COVID-19 Status: Acute Current Visit: Yes - Problem List Review Problem List Initiated/Reviewed/Updated: Yes - My Orders Last 24 Hours: My Active Orders 05/07/20 15:08 Blood Glucose Check, Bedside [RC] WITHMEALSANDBED Up ad Marnie [RC] ASDIRECTED Acetaminophen [TylenoL] 650 mg PO Q4H PRN Glucose Management Sub Q Reflex [OM.PC] Click To Edit Resuscitation Status Routine 05/07/20 15:11 Oxygen Therapy [RC] .PRN VTE/DVT Education [RC] 08,20 Vital Signs [RC] 00,04,08,12,16,20 05/07/20 15:19 tiZANidine HCl [Tizanidine HCl] 8 mg PO Q8H PRN 05/07/20 15:26 Glucagon,Human Recombinant [GlucaGen] 1 mg IM Q15M PRN 05/07/20 15:39 Isolation [COMM] Routine 05/07/20 15:45 Enoxaparin [Lovenox] 30 mg SUBCUT DAILY 05/07/20 16:50 Nystatin [Nystop] See Dose Instructions TOP BID PRN 05/07/20 17:00 Sodium Chloride 0.9% [Normal Saline] 1,000 ml IV ASDIRECTED 05/07/20 Dinner Consistent Carbohydrate Diet [DIET] 05/07/20 18:00 Insulin Lispro [HumaLOG] See Protocol SUBCUT WITHMEALSANDBED 05/07/20 19:30 Sodium Chloride 0.9% [Normal Saline] 1,000 ml IV ASDIRECTED 05/09/20 05:11 BASIC METABOLIC PANEL,BMP [CHEM] AM CBC WITH AUTO DIFF [HEME] AM 05/10/20 05:11 BASIC METABOLIC PANEL,BMP [CHEM] AM CBC WITH AUTO DIFF [HEME] AM 05/11/20 05:11 BASIC METABOLIC PANEL,BMP [CHEM] AM CBC WITH AUTO DIFF [HEME] AM 05/12/20 05:11 BASIC METABOLIC PANEL,BMP [CHEM] AM CBC WITH AUTO DIFF [HEME] AM 05/13/20 05:11 BASIC METABOLIC PANEL,BMP [CHEM] AM CBC WITH AUTO DIFF [HEME] AM 05/14/20 05:11 BASIC METABOLIC PANEL,BMP [CHEM] AM CBC WITH AUTO DIFF [HEME] AM - Plan Plan:: fadumo is a 59-year-old male who presents to ER per [facility] with complaint of increased weakness and inability to walk for the past 2 weeks, progressively getting worse. Patient denies any fever chills, nausea, vomiting. States he has had some diarrhea as well as incontinence of bowel and bladder. Patient states he is a diabetic, does not take medications for his diabetes. States a history of hypertension. Patient also states a history of chronic back pain, with shooting pains down his legs. He states this has not changed recently, denies any saddle anesthesia. Patient states he does take gabapentin for this. He reports that he has been in self isolation for the past 10 days due to COVID exposure. He also complains of urinary incontinence and occasional stool incontinence. Hypotension: most likely due to hypovolemia> improved. contine with IVF for today Generalized weakness: possible due to SILVESTRE and / or COVID. to start ambulating. Urinary inconstance/ Urinary retention: Bartlett placed in ER. keep for now SILVESTRE: likely due to urinary retention. Bartlett placed in ER COVID: h/o exposure about 10 days ago . Pt reports that he was in home isolation for about 10 days already. Reported stool incontinence: observe for improvement of symptoms since urinary retention is been addressed DM type 2: hold oral medication due to SILVESTRE. HTN: Hold ACEI due to SILVESTRE H/o on ongoing smoking: advised to quit. he does not want nicotine patch. h/o chronic back pain h/o PVD: advised to quit smoking Full code
[2020-05-08] MEDS: Gabapentin 300 MG Cap PO SCH ×2 (15:28→21:00)
[2020-05-08 23:32] VITALS: BP 111/90; PULSE 85
--- NOTE | 2020-05-09 12:16 | PCM.DCSUM1 ---
Discharge Summary - Hospital Course Free Text/Narrative:: Patient is a 59-year-old male who presents to ER per [facility] with complaint of increased weakness and inability to walk for the past 2 weeks, progressively getting worse. Patient denies any fever chills, nausea, vomiting. States he has had some diarrhea as well as incontinence of bowel and bladder. Patient states he is a diabetic, does not take medications for his diabetes. States a history of hypertension. Patient also states a history of chronic back pain, with shooting pains down his legs. He states this has not changed recently, denies any saddle anesthesia. Patient states he does take gabapentin for this. He reports that he has been in self isolation for the past 10 days due to COVID exposure. He also complains of urinary incontinence and occasional stool incontinence. Pt was found with SILVESTRE. Bladdr scan in ER showed large post void residual. bartlett was inserted. SILVESTRE: likely due to urinary retention. Bartlett placed in ER. Cr gradually trended down. Pt was maintained on IVF. Hypotension: Pt remained asymptomatic and with NL heart rate. ? hypovolemia> improved with IVF. Generalized weakness: possible due to SILVESTRE and / or COVID. started to ambulate. Urinary inconstance/ Urinary retention: Bartlett placed in ER. keep for now COVID: h/o exposure about 10 days ago . Pt reports that he was in home isolation for about 10 days already. Reported stool incontinence: seems to be resolved DM type 2: hold oral medication due to SILVESTRE. HTN: Hold ACEI due to SILVESTRE H/o on ongoing smoking: advised to quit. he does not want nicotine patch. h/o chronic back pain h/o PVD: advised to quit smoking Pt decided to go AMA. He was advised to keep the bartlett for now and to F/U with his PCP in the next few days. to come to ER if not better or any change - Discharge Data Discharge Date: 05/08/20 Discharge Disposition: Against Medical Advice 07 Condition: Fair - Referral to Home Health Primary Care Physician: PCP Unobtainable - Discharge Diagnosis/Problem(s) (1) Acute kidney failure SNOMED Code(s): 32287789 ICD Code: N17.9 - ACUTE KIDNEY FAILURE, UNSPECIFIED Status: Acute Qualifiers: Acute renal failure type: unspecified Qualified Code(s): N17.9 - Acute kidney failure, unspecified (2) COVID-19 SNOMED Code(s): 231838405 ICD Code: U07.1 - COVID-19 Status: Acute - Discharge Plan *PRESCRIPTION DRUG MONITORING PROGRAM REVIEWED*: No Home Medications: Home Meds Gabapentin 600 mg PO TID 03/10/14 [History] HCTZ/Triamterene [Maxzide 25-37.5 MG] 1 tab PO DAILY 03/10/14 [History] Lisinopril 40 mg PO DAILY 03/10/14 [History] tiZANidine HCl [Tizanidine HCl] 8 mg PO Q8H PRN 03/10/14 [History] atorvaSTATin [Lipitor] 20 mg PO DAILY 05/07/20 [History] glyBURIDE [Micronase] 2.5 mg PO DAILY 05/07/20 [History] metFORMIN HCl [Metformin HCl] 1,000 mg PO BIDMEALS 05/07/20 [History] Forms: ED Department Discharge - Discharge Summary/Plan Comment DC Time >30 min.: No - General Info Date of Service: 05/08/20 Functional Status: Reports: Pain Controlled, Tolerating Diet - Review of Systems General: Denies: Fever Pulmonary: Denies: Shortness of Breath Cardiovascular: Denies: Chest Pain Gastrointestinal: Denies: Abdominal Pain Genitourinary: Denies: Dysuria Neurological: Denies: Confusion Psychiatric: Denies: Confusion - Patient Data Vitals - Most Recent: Last Vital Signs Temp 97.9 F 05/08/20 20:00 Pulse 85 05/08/20 20:00 Resp 18 05/08/20 20:00 BP 111/90 05/08/20 20:00 Pulse Ox 93 L 05/08/20 20:00 Weight - Most Recent: 353 lb 3.2 oz I&O - Last 24 hours: Intake & Output 05/08/20 05/09/20 05/09/20 22:59 06:59 14:59 Intake Total 360 Output Total 1800 Balance -1440 Lab Results - Last 24 hrs: Laboratory Results - last 24 hr 05/08/20 05/08/20 Range/Units 16:18 20:21 POC Glucose 164 H 210 H (70-105) mg/dl Med Orders - Current: Current Medications Discontinued Medications Acetaminophen (Acetaminophen 325 Mg Tab) 650 mg PO Q4H PRN PRN Reason: Pain (Mild 1-3)/fever Dextrose/Water (50% Dextrose In Water 50 Ml Syringe) 50 ml IVPUSH ONETIME ONE Stop: 05/07/20 10:06 Last Admin: 05/07/20 10:28 Dose: 50 ml Documented by: Enoxaparin Sodium (Enoxaparin 30 Mg/0.3 Ml Syringe) 30 mg SUBCUT DAILY [facility] Last Admin: 05/08/20 10:00 Dose: 30 mg Documented by: Gabapentin (Gabapentin 300 Mg Cap) 600 mg PO TID [facility] Last Admin: 05/08/20 21:00 Dose: Not Given Documented by: Glucagon (Glucagon,Human Recombinant 1 Mg Vial) 1 mg IM Q15M PRN PRN Reason: Hypoglycemia Sodium Chloride (Normal Saline) 1,000 mls @ 999 mls/hr IV .BOLUS ONE Stop: 05/07/20 15:20 Last Admin: 05/07/20 15:49 Dose: 999 mls/hr Documented by: Sodium Chloride (Normal Saline) 1,000 mls @ 125 mls/hr IV ASDIRECTED [facility] Last Admin: 05/08/20 18:31 Dose: 125 mls/hr Documented by: Sodium Chloride (Normal Saline) 1,000 mls @ 999 mls/hr IV ASDIRECTED [facility] Last Infusion: 05/08/20 01:52 Dose: Infused Documented by: Insulin Human Lispro (Insulin Lispro 100 Units/Ml 3 Ml Vial) 0 unit SUBCUT ASDIRECTED [facility]; Protocol Insulin Human Lispro (Insulin Lispro 100 Units/Ml 3 Ml Vial) 0 unit SUBCUT WITHMEALSANDBED [facility]; Protocol Last Admin: 05/08/20 20:25 Dose: 4 units Documented by: Tizanidine Hcl 4 Mg Tablet Pt Own Med* * 8 mg PO Q8H PRN PRN Reason: Muscle Spasm Last Admin: 05/08/20 12:05 Dose: 8 mg Documented by: Nystatin (Nystatin Topical Powder 30 Gm Bottle) 0 gm TOP BID PRN PRN Reason: Itching Last Admin: 05/08/20 09:59 Dose: 1 applic Documented by: Comments:: The rest of exam was deferred due to COVID status - Exam Quality Assessment: Reports: Urine Catheter General: Reports: Alert, Oriented, Cooperative HEENT: Reports: EOMI Extremities: Normal Inspection Skin: Reports: Intact Neurological: Reports: No New Focal Deficit Psy/Mental Status: Reports: Normal Affect
== END 2020-05-08 22:20 | disposition left against medical advice (07) | DRG 682 ==
LOC: DL.ED 09:16 → DL.MS 11:45
PROVIDERS: ADMIT Internal Medicine; ATTEND Internal Medicine
PROC: 8E0ZXY6 Isolation (ICD-10-PCS; principal; 2020-05-07)
DX: N17.9 Acute kidney failure, unspecified (principal); U07.1 COVID-19; Z68.43 Body mass index [BMI] 50.0-59.9, adult; I95.9 Hypotension, unspecified; R33.9 Retention of urine, unspecified; R15.9 Full incontinence of feces; I10 Essential (primary) hypertension; E11.9 Type 2 diabetes mellitus without complications; F17.210 Nicotine dependence, cigarettes, uncomplicated; G89.29 Other chronic pain; M54.9 Dorsalgia, unspecified; E11.51 Type 2 diabetes mellitus with diabetic peripheral angiopathy without gangrene; H54.7 Unspecified visual loss; G47.30 Sleep apnea, unspecified; E66.9 Obesity, unspecified; Z90.89 Acquired absence of other organs; Z79.84 Long term (current) use of oral hypoglycemic drugs; Z79.899 Other long term (current) drug therapy
CPT/HCPCS: 0240U; 36415; 71045; 80048; 80053; 80305; 81001; 82009; 82550; 82962; 83735; 84484; 85025; 86140; 93005; 96374; 99284; 99285; 99221; 99238; A9270-GY; J1650; J1815-GY; J7030

== ENCOUNTER 2020-05-18 08:20 | Emergency (ER) | payer MEDICARE ==
[2020-05-18 08:35] VITALS: BP 111/60; PULSE 119
--- NOTE | 2020-05-18 08:57 | EDM.PDOC ---
<ShahramBowen Jeffrey - Last Filed: 05/18/20 09:15> ED HPI GENERAL MEDICAL PROBLEM - General Chief Complaint: General Stated Complaint: PROBLEMS WITH URINATING CATHETOR?? Time Seen by Provider: 05/18/20 08:50 - Related Data Allergies Allergy/AdvReac Type Severity Reaction Status Date / Time No Known Allergies Allergy Verified 05/18/20 08:39 Home Meds: Home Meds Gabapentin 600 mg PO TID 03/10/14 [History] HCTZ/Triamterene [Maxzide 25-37.5 MG] 1 tab PO DAILY 03/10/14 [History] Lisinopril 40 mg PO DAILY 03/10/14 [History] tiZANidine HCl [Tizanidine HCl] 8 mg PO Q8H PRN 03/10/14 [History] atorvaSTATin [Lipitor] 20 mg PO DAILY 05/07/20 [History] glyBURIDE [Micronase] 2.5 mg PO DAILY 05/07/20 [History] metFORMIN HCl [Metformin HCl] 1,000 mg PO BIDMEALS 05/07/20 [History] Course - Re-Assessments/Exams Free Text/Narrative Re-Assessment/Exam: 05/18/20 I personally performed or re-performed the physical examination and medical decision making. I have verified all student documentation or findings, including history, physical exam and/or medical decision making. Departure - Departure Disposition: Against Medical Advice 07 Clinical Impression: Lactic acid acidosis, SILVESTRE (acute kidney injury) Catheter-associated urinary tract infection Qualifiers: Indwelling urinary catheter type: indwelling urethral catheter Encounter type: initial encounter Qualified Code(s): T83.511A - Infection and inflammatory reaction due to indwelling urethral catheter, initial encounter; N39.0 - Urinary tract infection, site not specified - Discharge Information Instructions: Urinary Tract Infection, Adult, Dehydration, Adult, [id number] Forms: ED Department Discharge Additional Instructions: RX: Levaquin As we discussed at bedside, drink plenty of fluids to help with your kidney injury and lactic acidosis, and urination. If you develop a fever, chills, malaise or any other symptoms of concern to you contact your primary care provider or return to the ER. <Laureano Perez - Last Filed: 05/18/20 10:17> ED HPI GENERAL MEDICAL PROBLEM - General Source of Information: Reports: Patient History Limitations: Reports: No Limitations - History of Present Illness INITIAL COMMENTS - FREE TEXT/NARRATIVE: 59 y/o M c/o pain with at the site of insertion of bartlett catheter for 1 week. Pt states he would like the bartlett out today as the pain has become unbearable. He states 2 weeks ago the bartlett was placed because he was having incontinence throughout the day. Pt would get up off the couch and urinate in his pants with no control. Pt understands that his incontinence may return once the bartlett is removed. Pt also states he has had several episodes where he has caught the bartlett tubing on door or animals and now has some bleeding from the meatus. Pt understands that if the bartlett is removed he may have trauma to his urethra that may prevent him from urinating and if that is the case he may require another bartlett. Pt was suppsoed to follow up with his primary provider at the beginning of the month but stated she was on maternity leave. Denies fever, cough, chills, cp, db, flank pn, abd pn, pelvic pn, extremity pn, drugs, etoh. Hx of diabetes, and has smoked heavily for 40+ years. Location: Reports: Other (penis) Quality: Reports: Ache, Sharp Severity: Moderate Improves with: Reports: None Worsens with: Reports: Movement Past Medical History HEENT History: Reports: Impaired Vision Other HEENT History: wears glasses Cardiovascular History: Reports: Hypertension Respiratory History: Reports: Sleep Apnea Gastrointestinal History: Reports: None Genitourinary History: Reports: Urinary Incontinence Musculoskeletal History: Reports: Back Pain, Chronic Neurological History: Reports: Concussion, Head Trauma Psychiatric History: Reports: Addiction Endocrine/Metabolic History: Reports: Diabetes, Type II, Obesity/BMI 30+ Hematologic History: Reports: None Immunologic History: Reports: None Oncologic (Cancer) History: Reports: None Dermatologic History: Reports: Other (See Below) Other Dermatologic History: dry skin, yeast areas in skin folds - Infectious Disease History Infectious Disease History: Reports: Chicken Pox, Measles, Mumps - Past Surgical History Head Surgeries/Procedures: Reports: None HEENT Surgical History: Reports: Tonsillectomy Cardiovascular Surgical History: Reports: None Other GI Surgeries/Procedures: ruptured belly button as a child Male Surgical History: Reports: None Other Male Surgeries/Procedures: has a indwelling catheter. Endocrine Surgical History: Reports: None Neurological Surgical History: Reports: None Musculoskeletal Surgical History: Reports: None Dermatological Surgical History: Reports: Other (See Below) Social & Family History - Tobacco Use Tobacco Use Status *Q: Current Every Day Tobacco User Years of Tobacco use: 47 Packs/Tins Daily: 1 - Caffeine Use Caffeine Use: Reports: None - Recreational Drug Use Recreational Drug Use: No ED ROS GENERAL - Review of Systems Review Of Systems: Comprehensive ROS is negative, except as noted in HPI. ED EXAM, GENERAL - Physical Exam Exam: See Below Exam Limited By: No Limitations General Appearance: Alert, WD/WN, No Apparent Distress Throat/Mouth: Normal Inspection, Normal Lips, Normal Teeth, Normal Gums, Normal Oropharynx, Normal Voice, No Airway Compromise Head: Atraumatic, Normocephalic Neck: Normal Inspection, Supple, Non-Tender, Full Range of Motion Respiratory/Chest: No Respiratory Distress, Lungs Clear, Normal Breath Sounds, No Accessory Muscle Use, Chest Non-Tender Cardiovascular: Normal Peripheral Pulses, Regular Rate, Rhythm, No Edema, No Gallop, No JVD, No Murmur, No Rub GI/Abdominal: Normal Bowel Sounds, Soft, Non-Tender, No Organomegaly, No Distention, No Abnormal Bruit, No Mass (Male) Exam: Other (no visible trauma to the meatus. Penis is tender with manipulation of the bartlett. Testicles are normal size and non tender. No appreciable hernia) Rectal (Males) Exam: Deferred Back Exam: Normal Inspection, Decreased Range of Motion Extremities: Normal Inspection, Normal Range of Motion, Non-Tender, Normal Capillary Refill, No Pedal Edema Neurological: Alert, Oriented, CN II-XII Intact, Normal Cognition, Normal Gait, Normal Reflexes, No Motor/Sensory Deficits Psychiatric: Normal Affect, Normal Mood Skin Exam: Warm, Dry, Intact, Normal Color, No Rash Course - Vital Signs Last Recorded V/S: Last Vital Signs Temp 98.2 F 05/18/20 08:32 Pulse 119 H 05/18/20 08:32 Resp 16 05/18/20 08:32 BP 111/60 05/18/20 08:32 Pulse Ox 98 05/18/20 08:32 - Orders/Labs/Meds Orders: Active Orders 24 hr Category Date Time Status CULTURE URINE [RM] Stat Lab 05/18/20 09:12 Received Labs: Laboratory Tests 05/18/20 05/18/20 05/18/20 Range/Units 08:54 08:54 08:54 WBC 8.7 (5.0-10.0) 10^3/uL RBC 4.54 L (4.6-6.2) 10^6/uL Hgb 15.2 D (14.0-18.0) g/dL Hct 46.4 (40.0-54.0) % MCV 102.2 H (80-100) fL MCH 33.5 (27.0-34.0) pg MCHC 32.8 L (33.0-35.0) g/dL Plt Count 73 L (150-450) 10^3/uL Neut % (Auto) 71.8 (42.2-75.2) % Lymph % (Auto) 18.4 L (20.5-50.1) % [place] % (Auto) 8.4 H (2-8) % Eos % (Auto) 1.2 (1.0-3.0) % Baso % (Auto) 0.2 (0.0-1.0) % Sodium 139 (136-145) mmol/L Potassium 4.8 (3.5-5.1) mmol/L Chloride 101 (98-107) mmol/L Carbon Dioxide 23 (21-32) mmol/L Anion Gap 19.8 H (7-13) mEq/L BUN 39 H D (7-18) mg/dL Creatinine 1.99 H (0.70-1.30) mg/dL Est Cr Clr Drug Dosing 35.63 mL/min Estimated GFR (MDRD) 35 BUN/Creatinine Ratio 19.6 (No establ ref range) Glucose 135 H (70-99) mg/dL Lactic Acid 3.9 H* (0.4-2.0) mmol/L Calcium 9.1 (8.5-10.1) mg/dL Total Bilirubin 0.8 (0.2-1.0) mg/dL AST 35 (15-37) U/L ALT 37 (16-63) U/L Alkaline Phosphatase 70 (46-116) U/L Total Protein 7.7 (6.4-8.2) g/dL Albumin 3.1 L (3.4-5.0) g/dL Globulin 4.6 Albumin/Globulin Ratio 0.67 Urine Color (YELLOW) Urine Appearance (CLEAR) Urine pH (5.0-9.0) Ur Specific [place] (1.005-1.030) Urine Protein (NEGATIVE) Urine Glucose (UA) (NEGATIVE) Urine Ketones (NEGATIVE) Urine Occult Blood (NEGATIVE) Urine Nitrite (NEGATIVE) Urine Bilirubin (NEGATIVE) Urine Urobilinogen (0.2-1.0) mg/dL Ur Leukocyte Esterase (NEGATIVE) Urine RBC /HPF Urine WBC (0-5/HPF) /HPF Ur Epithelial Cells (NOT SEEN) /HPF Urine Bacteria (0-FEW/HPF) /HPF Urine Mucus (NOT SEEN) /LPF 05/18/20 Range/Units 09:12 WBC (5.0-10.0) 10^3/uL RBC (4.6-6.2) 10^6/uL Hgb (14.0-18.0) g/dL Hct (40.0-54.0) % MCV (80-100) fL MCH (27.0-34.0) pg MCHC (33.0-35.0) g/dL Plt Count (150-450) 10^3/uL Neut % (Auto) (42.2-75.2) % Lymph % (Auto) (20.5-50.1) % [place] % (Auto) (2-8) % Eos % (Auto) (1.0-3.0) % Baso % (Auto) (0.0-1.0) % Sodium (136-145) mmol/L Potassium (3.5-5.1) mmol/L Chloride (98-107) mmol/L Carbon Dioxide (21-32) mmol/L Anion Gap (7-13) mEq/L BUN (7-18) mg/dL Creatinine (0.70-1.30) mg/dL Est Cr Clr Drug Dosing mL/min Estimated GFR (MDRD) BUN/Creatinine Ratio (No establ ref range) Glucose (70-99) mg/dL Lactic Acid (0.4-2.0) mmol/L Calcium (8.5-10.1) mg/dL Total Bilirubin (0.2-1.0) mg/dL AST (15-37) U/L ALT (16-63) U/L Alkaline Phosphatase (46-116) U/L Total Protein (6.4-8.2) g/dL Albumin (3.4-5.0) g/dL Globulin Albumin/Globulin Ratio Urine Color Red (YELLOW) Urine Appearance Cloudy (CLEAR) Urine pH 5.0 (5.0-9.0) Ur Specific [place] 1.020 (1.005-1.030) Urine Protein 100 H (NEGATIVE) Urine Glucose (UA) Negative (NEGATIVE) Urine Ketones Negative (NEGATIVE) Urine Occult Blood Large H (NEGATIVE) Urine Nitrite Positive H (NEGATIVE) Urine Bilirubin Small H (NEGATIVE) Urine Urobilinogen 1.0 (0.2-1.0) mg/dL Ur Leukocyte Esterase Small H (NEGATIVE) Urine RBC >100 H /HPF Urine WBC 0-5 (0-5/HPF) /HPF Ur Epithelial Cells Rare (NOT SEEN) /HPF Urine Bacteria Moderate H (0-FEW/HPF) /HPF Urine Mucus Rare (NOT SEEN) /LPF - Re-Assessments/Exams Free Text/Narrative Re-Assessment/Exam: 05/18/20 10:04 Discussed pts exam, vitals and lab results with pt. Suggested admission for treatment of lactic acidosis, UTI, tachycardia ans elevated kidney labs. Pt adamantly refused admission stating he will never be admitted here again because the last time they wouldnt give him his Tizanadine medication on time. Explained to pt the risk of developing severe infection also known as sepsis. Explained to pt the risk of further kidney injury without admission and monitoring of kidney function. Expalined to pt the risk of developing an in ability to urinate or lack of control with urination following the removal of his bartlett catheter. The patient verbally confirmed he understood all of these aforementioned risks and still wished to refuse admission. Instructed pt to take the prescribed antibiotics and drink plenty of water to help with acidosis and kidney function. Instructed pt that he he develops fever, cough, chills, malaise, weakness, inability to urinate or any other concerning symptoms to contact his primary care facility or return to the ER. Departure - Departure Time of Disposition: 10:17 Condition: Fair - Discharge Information *PRESCRIPTION DRUG MONITORING PROGRAM REVIEWED*: Not Applicable *COPY OF PRESCRIPTION DRUG MONITORING REPORT IN PATIENT CHRIS: Not Applicable Sepsis Event Note (ED) - Evaluation Sepsis Screening Result: No Definite Risk - Focused Exam Vital Signs: Vital Signs Temp Pulse Resp BP Pulse Ox 05/18/20 08:32 98.2 F 119 H 16 111/60 98 - My Orders Last 24 Hours: My Active Orders 05/18/20 09:12 CULTURE URINE [] Stat - Assessment/Plan Last 24 Hours: My Active Orders 05/18/20 09:12 CULTURE URINE [] Stat
[2020-05-18 09:24] LABS: ANION GAP 19.8 mEq/L (7-13)
== END 2020-05-18 10:26 | disposition left against medical advice (07) ==
LOC: DL.ED 08:20
DX: T83.511A Infection and inflammatory reaction due to indwelling urethral catheter, initial encounter (principal); N17.9 Acute kidney failure, unspecified; E87.5 Hyperkalemia; I10 Essential (primary) hypertension; E11.9 Type 2 diabetes mellitus without complications; E66.9 Obesity, unspecified; Z79.84 Long term (current) use of oral hypoglycemic drugs; Z79.899 Other long term (current) drug therapy; Z72.0 Tobacco use; Z68.43 Body mass index [BMI] 50.0-59.9, adult
CPT/HCPCS: 36415; 80053; 81001; 83605; 85025; 87086; 87088; 87186; 99283; 99284